=== PATIENT | female | born 1985 | race Caucasian/White ===

== ENCOUNTER 2025-06-28 12:59 | Emergency (ER) | payer BC, SELFPAY ==
[2025-06-28 13:01] VITALS: BP 167/94; PULSE 87; RESP 18; TEMP 36.9; O2SAT 98; BMI 36.1
--- OUTSIDE RECORDS SUMMARY | 2025-06-28 13:13 | XMS_ITS | Encounter Summary ---
[facility] Address [address] [place] [address] Care Team Providers Care Nissan Sales Consultant Name Role Phone Rigoberto Armendariz Primary Care Provider [phone] Encounter Details Date Type Department Care Team (Late st Contact Info) Description 01/22/2025 Results Follow-Up [facility] [place] [address] [place] [address] Clarice Rondon, PARTNER MANAGER [address] [facility] [address] [place] [address] Social History Tobacco Use Types Packs/Day Years Used Date Smoking Tobacco: Some Days Electronic Cigarette Smokeless Tobacco: Never Comments:I switched from smo juan cigarettes to vaping Alcohol Use Standard Drinks/Week Comments Yes 6 (1 standard drink = 0.6 oz pur e alcohol) AUDIT-C Answer Date Recorded Frequency of Alcohol Consumption Never 05/05/2019 Average Number of Drinks Not on file 019 Frequency of Binge Drinking Not on file 04/17 PHQ-2 Answer Date Recorded Retired PHQ-9: Brief Depression Severity Measure Score 0 10/23/2022 Gaylord Depression Scale Answer Date Recorded Gaylord Depression Scale Total 1 10/27/2019 The thought of harming myself has occurred to me . Unrecognized value 10/27/2019 PHQ-2 Answer Date Recorded Patient Health Questionnaire-2 Score 0 10/13/2024 Comments No Sex and Gender Information Value Date Recorded Sex Assigned at Not on file Legal Sex Female 10:16 AM EDT Gender Identity Not on file Sexual Orientation Not on file documented as of this encounter Plan of Treatment Not on file documented as of this encounter Visit Diagnoses Not on filedocumented in this encounter Care Teams Nissan Sales Consultant Relationship Specialty Start Date End Date Rigoberto Armendariz PA [address] [place] [address] PCP - General Physician Kiln Stoker 02/20/22 documented as of this encounter
--- OUTSIDE RECORDS SUMMARY | 2025-06-28 13:13 | XMS_ITS | Encounter Summary ---
[facility] Organization [facility] Address [address] [place] [address] Care Team Providers Care Restaurant Hourly Team Member Name Role Phone Rigoberto Armendariz Primary Care Provider [phone] Encounter Details Date Type Department Care Team (Late st Contact Info) Description 12/31/2024 Results Follow-Up [facility] [address] [place] [address] Clarice Rondon, DOVETAIL MACHINE OPERATOR [address] [facility] [address] [place] [address] Social History Tobacco Use Types Packs/Day Years [...] Brief Depression Severity Measure Score 0 10/23/2022 Leighton Depression Scale Answer Date Recorded Leighton Depression Scale Total 1 10/27/2019 The thought [...] on filedocumented in this encounter Care Teams Restaurant Hourly Team Member Relationship Specialty Start Date End Date Rigoberto Armendariz PA [address] [place] [address] PCP - General Physician Central Service Supply Distributor 02/20/22 documented as of this encounter
--- OUTSIDE RECORDS SUMMARY | 2025-06-28 13:13 | XMS_ITS | Referral Summary ---
Author Organization [employer] ([place], [place], [place], [place]) Address [address] [place] [address] Care Team Providers Care City Clerk Name Role Phone Unavailable Primary Care Provider Unavailabl e Social History Tobacco Use Types Packs/Day Years Used Date Smoking Tobacco: Never Assessed Comments Unknown Sex and Gender Information Value Date Recorded Sex Assigned at Female 03/13/2022 6:32 PM CDT Legal Sex Female 6:32 PM CDT Gender Identity Female 03/13/2022 6:32 PM CDT Sexual Orientation Not on file Plan of Treatment Not on file
--- OUTSIDE RECORDS SUMMARY | 2025-06-28 13:13 | XMS_ITS | Encounter Summary ---
Author Organization [employer] ([place], [place], [place], [place]) Address [address] [place] [address] Care Team Providers Care Belt And Link Shop Supervisor Name Role Phone Unavailable Primary Care Provider Unavailabl e Encounter Details Date Type Department Care Team (Late st Contact Info) Description 11/13/2019 Transcribed Document [facility] [place] [facility] [place] [address] ProviderAngeles MD [address] [place] [address] Social History Tobacco Use Types Packs/Day Years Used Date Smoking Tobacco: Never Assessed Comments Unknown Sex and Gender Information Value Date Recorded Sex Assigned at Female 03/13/2022 6:32 PM CDT Legal Sex Female 6:32 PM CDT Gender Identity Female 03/13/2022 6:32 PM CDT Sexual Orientation Not on file documented as of this encounter Miscellaneous Notes * Cerner Conversion Note - Angeles ProviderMD - 11/13/2019 10:54 AM ELECTRICAL CONTROL ASSEMBLER [facility] [place] [address] HALIMA CURRY :1985 Visit Time:11/13/2019 What to do next Your Diagnosis Other hemorrhoids, Other hemorrhoids Instructions From Your Care Team Diet after Discharge: Resume usual diet as tolerated, Do not drink any alcoholic beverages, Drink at least 8-10 glasses of water per day _ Activity after Discharge: As tolerated, Rest and relax today, No strenuous activity Lifting Restrictions: No heavy lifting over 10 pounds Driving after Discharge: Do not drive until 24 hours after no longer taking pain medications May Return to Work/School: when surgeon says its ok Showering/Bathing: May shower in 24 hours , No tub bathing, soaking or swimming Notify Provider of: signs of infection, fever greater then 101, pus like drainage, sever pain, swelling or bleeding. Wound/Incision Care after Discharge: Keep operative site/wound site clean and dry, Change dressing with dry dressing daily and as needed use stool softener as instructed. pump and dump as instructed. Discharge Follow Up Instructions: Follow up in 4 weeks in the office. Activity: Discharge Activity: Activity as tolerated Diet: Discharge Diet: Regular diet as tolerated Follow-Up Appointments Follow Up with DARWIN GUERRERO When 12/08/2019 04:00 PM EDT Comments Appointment has been made Where: [address] [facility] [address] [place] [phone] (1) Medications What How Much When Instructions Next Dose acetaminophen-oxyCODONE (Percocet 5/ 325 oral tablet) 1 Tablet(s) Oral Every 6 Hours as needed for Pain Printed Prescription docusate (Colace 100 mg oral capsule) 1 Capsule(s) Oral Two Times A Day Printed Prescription Non Formulary ( vitamins) Oral Every Morning Take your medications faithfully. Do NOT skip medication. Do NOT stop taking medications without the direction of a physician. Carry a list of your medications with you at all times, and take this medication list with you to your first follow up visit. Report any side effects. Avoid herbal remedies unless discussed with your physician. As part of your treatment plan, your physician may have prescribed a limited course of a controlled substance. This medication may be given to help people with moderate or severe pain or for other medical conditions, but there are risks involved with treatment. Common side effects may include nausea, constipation, drowsiness, sweating, itching, dry mouth, and rash. More serious side effects may include cognitive and motor impairment, like problems with thinking, concentrating, alertness, and movement (e.g. slowed reflexes), and driving and operating heavy machinery can be dangerous. It is important for you to talk to your physician if you have these side effects or questions. These controlled substances can produce physical dependence and be habit-forming if taken for an extended period of time, which means that the body has gotten used to them and may experience withdrawal symptoms if they are abruptly stopped. Withdrawal symptoms can include runny nose, sweating, goose bumps, diarrhea, abdominal cramping, rapid heartbeat, difficulty sleeping, and nervousness. Please dispose of unused and medications per pharmacy guidance. Education Materials Surgical Procedures for Hemorrhoids, Care After Refer to this sheet in the next few weeks. These instructions provide you with information about caring for yourself after your procedure. Your health care provider may also give you more specific instructions. Your treatment has been planned according to current medical practices, but problems sometimes occur. Call your health care provider if you have any problems or questions after your procedure. What can I expect after the procedure? After the procedure, it is common to have: ??? Rectal pain. ??? Pain when you are having a bowel movement. ??? Slight rectal bleeding. Follow these instructions at home: Medicines ??? Take gtsw-acc-gwhkcmi and prescription medicines only as told by your health care provider. ??? Do not drive or operate heavy machinery while taking prescription pain medicine. ??? Use a stool softener or a bulk laxative as told by your health care provider. Activity ??? Rest at home. Return to your normal activities as told by your health care provider. ??? Do not lift anything that is heavier than 10 lb (4.5 kg). ??? Do not sit for long periods of time. Take a walk every day or as told by your health care provider. ??? Do not strain to have a bowel movement. Do not spend a long time sitting on the toilet. Eating and drinking ??? Eat foods that contain fiber, such as whole grains, beans, nuts, fruits, and vegetables. ??? Drink enough fluid to keep your urine clear or pale yellow. General instructions ??? Sit in a warm bath 2???3 times per day to relieve soreness or itching. ??? Keep all follow-up visits as told by your health care provider. This is important. Contact a health care provider if: ??? Your pain medicine is not helping. ??? You have a fever or chills. ??? You become constipated. ??? You have trouble passing urine. Get help right away if: ??? You have very bad rectal pain. ??? You have heavy bleeding from your rectum. This information is not intended to replace advice given to you by your health care provider. Make sure you discuss any questions you have with your health care provider. Document Released: 11/22/2004 Document Revised: 02/07/2017 Document Reviewed: 11/28/2015 SPO Interactive Patient Education ?? 2019 [employer]. Outpatient Surgery, Adult, Care After These instructions provide you with information about caring for yourself after your procedure. Your health care provider may also give you more specific instructions. Your treatment has been planned according to current medical practices, but problems sometimes occur. Call your health care provider if you have any problems or questions after your procedure. What can I expect after the procedure? After the procedure, it is common to have: ??? Tenderness and numbness at the surgical site. ??? Swelling and bruising around the surgical site. ??? Nausea. Follow these instructions at home: For at least 24 hours after the procedure: ??? Have a responsible adult stay with you. It is important to have someone help care for you until you are awake and alert. ??? Rest as needed. ??? Do not: ? Participate in activities in which you could fall or become injured. ? Drive. ? Use heavy machinery. ? Drink alcohol. ? Take sleeping pills or medicines that cause drowsiness. ? Make important decisions or sign legal documents. ? Take care of children on your own. Activity ??? Return to your normal activities as told by your health care provider. Ask your health care provider what activities are safe for you. ??? Do not lift anything that is heavier than 10 lb (4.5 kg), or the limit that your health care provider tells you, until your health care provider says it is okay. ??? Do not play contact sports until your health care provider says it is okay. Incision care ??? Follow instructions from your health care provider about how to take care of an incision, if you have one. Make sure you: ? Wash your hands with soap and water before you change your bandage (dressing). If soap and water are not available, use hand mat puncher. ? Change your dressing as told by your health care provider. ? Leave stitches (sutures), skin glue, or adhesive strips in place. These skin closures may need to stay in place for 2 weeks or longer. If adhesive strip edges start to loosen and curl up, you may trim the loose edges. Do not remove adhesive strips completely unless your health care provider tells you to do that. ??? Check your incision area every day for signs of infection. Check for: ? More redness, swelling, or pain. ? More fluid or blood. ? Warmth. ? Pus or a bad smell. Medicines ??? Take dslr-aiw-adijqay and prescription medicines only as told by your health care provider. ??? Do not drive or use heavy machinery while taking prescription pain medicines. Eating and drinking ??? Follow the diet recommended by your health care provider. ??? When you are hungry, begin eating light and bland foods such as toast. Gradually return to your regular diet. ??? If you vomit: ? Drink water, juice, or soup when you can drink without vomiting. ? Make sure you have little or no nausea before eating solid foods. General instructions ??? If you have sleep apnea, surgery and certain medicines can increase your risk for breathing problems. Follow instructions from your HCP about wearing your sleep device: ? Anytime you are sleeping, including during daytime naps. ? While taking prescription pain medicines, sleeping medicines, or medicines that make you drowsy. ??? Do not use any tobacco products, such as cigarettes, chewing tobacco, and e-cigarettes, for as long as possible. ??? If you smoke, do not smoke without supervision. ??? Keep all follow-up visits as told by your health care provider. This is important. Contact a health care provider if: ??? You have more redness, swelling, or pain around your incision. ??? You have more fluid or blood coming from your incision. ??? Your incision feels warm to the touch. ??? You have pus or a bad smell coming from your incision. ??? You have a fever. ??? You feel light-headed or you faint. ??? You develop a rash. ??? You keep feeling nauseous or keep vomiting. ??? You have very bad pain, even after taking the medicines your health care provider has prescribed or recommended. ??? You have constipation. Get help right away if: ??? You are unable to pass urine. ??? You have trouble breathing. Summary ??? Have a responsible adult stay with you for at least 24 hours after the procedure. ??? Nausea is common after a procedure. Make sure you have little or no nausea before eating solid foods. Follow the diet recommended by your health care provider. ??? Ask your health care provider what activities are safe for you. This information is not intended to replace advice given to you by your health care provider. Make sure you discuss any questions you have with your health care provider. Document Released: 12/23/2016 Document Revised: 04/10/2018 Document Reviewed: 12/23/2016 SPO Interactive Patient Education ?? 2019 [employer]. Emergency Awareness and Preventative Care STROKE is an EMERGENCY Every Minute Counts Act FAST and Check for these signs: FACE Does the face look uneven? ARM Does one arm drift down? SPEECH Does their speech sound strange? TIME Call at any sign of stroke Stroke Risk Factors Atrial Fibrillation (irregular heartbeat) Diabetes Family history of stroke Heart Disease Heavy alcohol use High Blood Pressure High Cholesterol Physical inactivity and obesity Smoking Cigarette Smoking The facts are clear, cigarette smoking will shorten your life. Smoking can cause many illnesses along the way. As a healthcare provider, we recommend that you stop smoking. Assistance with quitting is available by contacting 2-319-MXVT-NOW. This is a free resource providing counseling, support, and referral. Or you may contact your personal physician. National Suicide Prevention Lifeline: The National Suicide Prevention Lifeline is a national network of local crisis centers that provides free and confidential emotional support to people in suicidal crisis or emotional distress 24 hours a day, 7 days a week. Don't Wait! Stop a Heart Attack Before it Starts What is a heart attack? A heart attack is damage or to a part of the heart from severely decreased or lack of blood flow to the heart. Over time, arteries can become narrow from the buildup of fat and cholesterol, which is called plaque. The plaque can rupture causing a blood clot to form. When the blood clot forms, the artery can become severely narrowed or completely blocked, causing a heart attack. Heart attack is the leading cause of in the [place]. 85% of muscle damage occurs within the first 2 hours. Delay in the recognition of heart attack symptoms increases the chances of . Know the early symptoms of a heart attack: Nausea Feeling of fullness in chest Jaw Pain Pain that travels down one or both arms Fatigue/being tired Anxiety Back Pain Chest pressure, squeezing, or discomfort Shortness of breath Sweating, or a cold sweat Feeling of impending doom There are unusual signs of a heart attack, too! Women, the elderly, and diabetics may present with atypical symptoms: Fainting/dizziness Weakness Confusion Risk Factors for a Heart Attack Some heart disease risk factors, such as age and family history, cannot be changed. Others, like smoking and lack of exercise, can be changed. Smoking High Cholesterol High Blood Pressure Family History Obesity Age Gender (Males are at higher risk) Lack of Exercise Diabetes Diet Stress Excessive Alcohol Intake If you or someone you know is experiencing the signs and symptoms of a heart attack, DON???T DELAY. Call immediately and seek help. If someone collapses, perform CPR! Do not attempt to drive if you are having symptoms of heart attack. Hands-Only CPR Why Hands-Only CPR? Hands-Only CPR has been shown to be as effective as conventional CPR for cardiac arrests that occur outside of a hospital. Survival depends on immediately receiving CPR from someone nearby. How do you perform Hands-Only CPR? There are two easy steps: Call if you see a teen or adult collapse Push hard and fast in the center of the chest at a beat of 100 beats per minute. Save a life! 4 WAYS TO GET AHEAD OF SEPSIS SEPSIS is a MEDICAL EMERGENCY. Time matters! Infections put you and your family at risk for a life-threatening condition called sepsis. Sepsis is the body's extreme response to an infection. It is life-threatening, and without timely treatment, sepsis can rapidly lead to tissue damage, organ failure, and . Sepsis happens when an infection you already have-in your skin, lungs, urinary tract or somewhere else-triggers a chain reaction throughout your body. 1 PREVENT INFECTIONS Take good care of chronic conditions. Talk to your doctor about getting the recommended vaccines. 2 PRACTICE GOOD HYGIENE Wash your hands frequently. Keep cuts or open sores clean and covered until they are healed. 3 KNOW THE SYMPTOMS Confusion or disorientation Shortness of breath High heart rate Fever, shivering, or feeling very cold Extreme pain or discomfort Clammy or sweaty skin 4 ACT FAST Get medical care IMMEDIATELY if you suspect sepsis or if you have an infection that is not getting better or is getting worse. To learn more about sepsis and how to prevent infections, visit www.cdc.gov/sepsis. Test Results Laboratory or Other Results This Visit (last charted value for your 11/13/2019 visit) No Laboratory or Other Results This Visit Patient Name:CURRY, HALIMA SALBADOR I have received this information and was given the opportunity to ask questions. Patient/Buttermaker Name: Patient/Buttermaker Signature: Relationship to Patient: Clinician/Hospital Buttermaker Signature: Date: documented in this encounter Plan of Treatment Not on file documented as of this encounter Visit Diagnoses Not on filedocumented in this encounter
--- OUTSIDE RECORDS SUMMARY | 2025-06-28 13:13 | XMS_ITS | Clinical Summary ---
Author Organization [employer] ([place], [place], [place], [place]) Address [address] [place] [address] Care Team Providers Care Lacquer Pin Press Operator Name Role Phone Unavailable Primary Care Provider [...]
--- OUTSIDE RECORDS SUMMARY | 2025-06-28 13:13 | XMS_ITS | Encounter Summary ---
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 Name: HALIMA BASSETT /Sex: 1985 Female Med Rec #: [id number] Physician: DARWIN GUERRERO MD-PRO Financial #: [id number] Pt. Type: O Room/Bed: Admit/Disch: 11/13/19 06:46:00 - Institution: [facility] Main OR PostOp Case Times Entry 1 In PACU II 11/13/19 10:37:00 Ready for PACU II 11/13/19 10:58:00 Discharge Discharge from PACU 11/13/19 11:22:00 II Last Modified By: ADRIEL KNOX, OSWALDO 11/13/19 11:31:51 [facility] Main OR PostOp Case Times Audit 11/13/19 11:31:51 Syrup Maker Cook: OSCAR Modifier: [email or web address] <+> 1 Discharge from PACU II Finalized By: ADRIEL KNOX, RN Document Signatures Signed By: ADRIEL KNOX RN 11/13/19 11:31 Electronically signed by Karena [facility] Conversion Hat Forming Machine Feeder Cerner at 01/04/2023 9:42 AM CDT documented in this encounter Plan of Treatment Not on file documented as of this encounter Visit Diagnoses Not on filedocumented in this encounter
--- OUTSIDE RECORDS SUMMARY | 2025-06-28 13:13 | XMS_ITS | Clinical Summary ---
Author Organization [facility] Address [address] [place] [address] Care Team Providers Care Talent Manager Name Role Phone Rigoberto Armendariz Primary Care Provider [phone] Allergies No known active allergies Medications Levonorgestrel (Mirena, 52 MG,) 20 MCG/DAY intrauterine device IUD To be inserted one time by prescriber. Route intrauterine. Active spironolactone (Aldactone) 50 MG tablet Take 1 tablet by mouth Every Morning. 30 tablet 12 5 Active metFORMIN ER (GLUCOPHAGE-XR) 500 MG 24 hr tabletIndication s:Encounter for weight management,Obesi ty (BMI 30-39.9),PCOS (polycystic ovarian syndrome) Take 1 tablet by mouth Daily With Breakfast. 90 tablet 1 5 Active Tirzepatide-Weig ht Management (ZEPBOUND) 2.5 MG/0.5ML solution auto-injectorInd ications:Encount er for weight management,Obesi ty (BMI 30-39.9),PCOS (polycystic ovarian syndrome) Inject 0.5 mL under the skin into the appropriate area as directed 1 (One) Time Per Week. 2 mL 5 Active Active Problems Problem Noted Date Diagnosed Date IUD check up 11/12/2024 Overview (11/12/2024): Mirena IUD placed 12/24/19 Attention deficit disorder (ADD) in adult 2019 Mixed hyperlipidemia 08/24/2020 Family history of diabetes mellitus 08/24/2020 History of section complicating pregnan cy 10/27/2019 Resolved Problems Problem Noted Date Diagnosed Date Resolved Date Obesity in , antepartum 10/27/2019 08/24/2020 Delivery by section using transverse incision of lower segment of uterus 10/22/2019 1205/2020 Immunizations Immunization Administration Dates Next Due COVID-19 (PFIZER) Purple Cap Monovalent 05/15/20 21,04/22/2021 Covid-19 (Pfizer) Rodriguez Cap Monovalent 11/13/2021 Influenza TIV (IM) 09/10/2012 MMR 09/02/2012,07/30/2012 Tdap 08/18/2012 Family History Medical History Relation Name Comments Breast cancer Maternal Aunt Breast cancer Maternal Grandmother Diabetes Mother Alessandra Hypertension Mother Alessandra Obesity Mother Alessandra Endometrial cancer Neg Hx Ovarian cancer Neg Hx Relation Name Status Comments Maternal Aunt Maternal Grandmother Mother Alessandra Social History Tobacco Use Types Packs/Day Years Used Date Smoking Tobacco: Some Days Electronic Cigarette Smokeless Tobacco: Never Tobacco Cessation:Ready to Q uit: No; Counseling Given: Not Answered Comments:I switched from smoking cigarettes to vaping Alcohol Use Standard Drinks/Week Comments Yes 6 (1 standard drink = 0.6 oz pur e alcohol) AUDIT-C Answer Date Recorded Frequency of Alcohol Consumption Never 05/05/2019 Average Number of Drinks Not on file 019 Frequency of Binge Drinking Not on file 04/17 PHQ-2 Answer Date Recorded Retired PHQ-9: Brief Depression Severity Measure Score 0 10/23/2022 [place] Depression Scale Answer Date Recorded [place] Depression Scale Total 1 10/27/2019 The thought of harming myself has occurred to me . Unrecognized value 10/27/2019 PHQ-2 Answer Date Recorded Patient Health Questionnaire-2 Score 0 10/13/2024 Comments No Sex and Gender Information Value Date Recorded Sex Assigned at Not on file Legal Sex Female 10:16 AM EDT Gender Identity Not on file Sexual Orientation Not on file Last Filed Vital Signs Vital Sign Reading Time Taken Comments Blood Pressure 124/76 11/23/2024 2:38 PM EDT Pulse 83 11/23/2024 2:38 PM EDT Temperature 36.7 C (98 F) 11/23/2024 2:38 PM EDT Respiratory Rate 14 11/23/2024 2:38 PM EDT Oxygen Saturation 97% 11/23/2024 2:38 PM EDT Inhaled Oxygen Concentration - - Weight 109 kg (240 lb) 11/23/2024 2:38 PM EDT Height 175.3 cm (5' 9 ) 11/23/2024 2:38 PM EDT Body Mass Index 35.44 11/23/2024 2:38 PM EDT Plan of Treatment Health Maintenance Due Date Last Done Comments Pneumococcal Vaccine 0-49 (1 of 2 - PCV) 2006 TDAP/TD VACCINES (2 - Td or Tdap) 08/18/2022 012 ANNUAL PHYSICAL 08/16/2023 08/16/2022 INFLUENZA VACCINE 04/16/2025 09/10/2012 LIPID PANEL 11/12/2025 11/12/2024, 09/2021, 07/26/2022, Additional history exists Annual Gynecologic Pelvic an d Breast Exam 11/13/2025 11/12/2024, 08/16/2022 PAP SMEAR 11/12/2027 11/12/2024, 09/2021, 08/16/2022, Additional history exists HEPATITIS C SCREENING Completed 08/16/2022 Procedures Procedure Name Priority Date/Time Associated Diagnosis Comments LIPID PANEL Routine 11/12/2024 8:42 AM EST Women's annual routine gynecological examination Female hirsutism Acne, unspecified acne type LIQUID-BASED PAP SMEAR WITH HPV GENOTYPING REGARDLESS OF INTERPRETATION, [facility] (JAKY,COR,MAD) Routine 11/12/2024 8:34 AM EST Women's annual routine gynecological examination HEPATITIS C ANTIBODY Routine 08/16/2022 11:57 AM EST Encounter for hepatitis C screening test for low risk patient SCANNED - PAP SMEAR 08/16/2022 from Last 3 Months or Most Recently Relevant to Health Maintenance Results * (ABNORMAL) Lipid Panel (11/12/2024 8:42 AM EST) Total Cholesterol 188 0 - 200 mg/dL [facility] Comment: Cholesterol Reference Ranges (U.S. Department of Health and Human Services ATP III Classifications) Desirable <200 mg/dL Borderline High 200-239 mg/dL High Risk >240 mg/dL Triglyceride Reference Ranges (U.S. Department of Health and Human Services ATP III Classifications) Normal <150 mg/dL Borderline High 150-199 mg/dL High 200-499 mg/dL Very High >500 mg/dL HDL Reference Ranges (U.S. Department of Health and Human Services ATP III Classifications) Low <40 mg/dl (major risk factor for CHD) High >60 mg/dl ('negative' risk factor for CHD) LDL Reference Ranges (U.S. Department of Health and Human Services ATP III Classifications) Optimal <100 mg/dL Near Optimal 100-129 mg/dL Borderline High 130-159 mg/dL High 160-189 mg/dL Very High >189 mg/dL LDL is calculated using the NIH LDL-C calculation. Triglycerides 282(H) 0 - 150 mg/dL [facility] HDL Cholesterol 43 40 - 60 mg/dL [facility] VLDL Cholesterol Max 48(H) 5 - 40 mg/dL [facility] LDL Chol Calc (NIH) 97 0 - 100 mg/dL [facility] Blood 11/12/2024 8:42 AM EST 11/12/2024 Narrative [facility] ([facility]) - 11/13/2024 8:11 AM EST Performed at: [address] [place] [id number] Repair Department Manager: Manjinder Graf MD, Phone: [phone] Patient Fasting: N Clarice Lazo APRN LAB BLOOD ORDERABLES Joselin l Result Performing Organization Address City/State/[facility] Co de Phone Number [facility] ([facility]) [address] [place] [address], [facility] [address] [place] [address], * LIQUID-BASED PAP SMEAR WITH HPV GENOTYPING REGARDLESS OF INTERPRETATION (JAKY,COR,MAD) (11/12/2024 8:34 AM EST) Pathologist [facility] Reference Lab Report [facility] [address] [place] [address] or [phone] Stephane Masterson M.D., Director Social Welfare PATIENT NAME LABORATORY NO. 65URBANO JONES. [id number] AGE SEX SSN CLIENT REF # [facility] ([facility]IGNIK [facility]) 37 1985 F [id number] Natalya DOUGLAS CHAVARRIA REQUESTING Mohit ATTENDING M.D. [place] [address] LAZOASHWINY DATE COLLECTED DATE RECEIVED DATE REPORTED 11/12/2024 11/12/2024 11/13/2024 ThinPrep Pap with Cytyc Imaging DIAGNOSIS: Negative for intraepithelial lesion or malignancy Multiple factors can influence accuracy of Pap tests; therefore, screening at regular intervals is necessary for early cancer detection. SPECIMEN ADEQUACY: SATISFACTORY FOR EVALUATION Transformation zone is present. SOURCE OF SPECIMEN: CERVICAL SLIDES: 1 CLINICAL HISTORY: Women's annual routine gynecological examination Encounter for screening for infections with a predominantly sexual mode of transmission Menstrual / History: Irregular Intrauterine Device HPV HR-HPV POOL: Negative The Aptima HPV assay is an in vitro nucleic acid amplification test for the qualitative detection of E6/E7 viral messenger RNA from 14 high risk types of HPV in cervical specimens. The high risk HPV types detected include: 16, 18, 31, 33, 35, 39, 45, 51, 52, 56, 58, 59, 66, 68 Chlamydia / Gonorrhea CHLAMYDIA TRACHOMATIS: Negative NEISSERIA GONORRHOEAE: Negative The Aptima Combo 2 assay is a target amplification nucleic acid probe test that utilizes target capture for the in vitro qualitative detection and differentiation of ribosomal RNA from Chlamydia trachomatis and Neisseria gonorrhoeae to aid in the diagnosis of chlamydial and gonococcal disease using the [place] system. Trichomonas TRICHOMONAS VAGINALIS: Negative The Aptima Trichomonas vaginalis assay is an in vitro qualitative nucleic acid amplification test for the detection of ribosomal RNA to aid in the diagnosis of trichomoniasis. RAILWAY YARD ASSISTANT: ANDRE GLASS(ASCP) CPT CODES: 50651, 39609, 82950, 24647, 48995 11/13/2024 10:55 AM EST [facility] ThinPrep Vial Collection / Unknown 11/12/2024 8:34 AM EST 11/12/2024 8:34 AM EST Clarice Lazo APRN PATHOLOGY/CYTOLOGY ORDERA BLES Final Result [facility]
[address] [place] [address], [place] [phone] * Hepatitis C Antibody (08/16/2022 11:57 AM EST) Hep C Virus Ab <0.1 0.0 - 0.9 s/co ratio [facility] Comment: Negative: < 0.8 Indeterminate: 0.8 - 0.9 Positive: > 0.9 HCV antibody alone does not differentiate between previous resolved infection and active infection. The CDC and current clinical guidelines recommend that a positive HCV antibody result be followed up with an HCV RNA test to support the diagnosis of acute HCV infection. [facility] Hepatitis C Virus (HCV) RNA, Diagnosis, RYAN (315293) and Hepatitis C Virus (HCV) Antibody with reflex to Quantitative Real-time PCR (290069). Blood 08/16/2022 11:5 7 AM EST 08/16/2022 Narrative [facility] (AMBULATORY) - 08/17/2022 7:09 AM EST Performed at: [address] [id number] Repair Department Manager: Elijah Klein PhD, Phone: [phone] Patient Fasting: Y Yeni Tam DO LAB BLOOD ORDERABLES Final Result Performing Organization Address City/[facility] Co de Phone Number [facility] ([facility]) [address] [place] [address], [place] [phone] [facility] [address] [place] [address], [place] [phone] * SCANNED - PAP SMEAR (08/16/2022) Yeni Tam DO CHART REVIEW TABS Final Result from Last 3 Months or Most Recently Relevant to Health Maintenance Insurance [facility] PPO Advance Directives * CPR (Attempt to Resuscitate) (Latest Code Status on File) Date Activated Date Inactivated Comments 10/27/2019 12:30 PM 10/31/2019 3:41 PM Question Answer Comments Code Status (Patient has no pulse and is not breathing): CPR (Attempt to Resuscitate) Medical Interventions (Patie nt has pulse or is breathing): Full * CPR (Attempt to Resuscitate) Date Activated Date Inactivated Comments 10/27/2019 7:20 AM 10/27/2019 12:30 PM Question Answer Comments Code Status (Patient has no pulse and is not breathing): CPR (Attempt to Resuscitate) Medical Interventions (Patie nt has pulse or is breathing): Full Care Teams Talent Manager Relationship Specialty Start Date End Date Rigoberto Armendariz [place] [address] PCP - General Physician Pesticide Control Inspector 02/20/22
--- OUTSIDE RECORDS SUMMARY | 2025-06-28 13:14 | XMS_ITS | Encounter Summary ---
Author Organization [employer] ([place], [place], [place], [place]) Address [address] [place] [address] Care Team Providers Care Pinion Sorter Name Role Phone Unavailable Primary Care Provider Unavailabl e Encounter Details Date Type Department Care Team (Late st Contact Info) Description 11/13/2019 Transcribed Document [facility] [place] [address] ProviderAngeles MD [address] [place] [address] Social History Tobacco Use Types Packs/Day [...] - Angeles ProviderMD - 11/13/2019 9:15 AM LABORER [facility] Main OR PACU Summary Primary Physician: DARWIN GUERRERO MD-PRO Finalized Date/Time: 11/13/19 10:44:54 Pt. Name: HALIMA CURRY/Sex: 1985 Female Med Rec #: [id number] Physician: DARWIN GUERRERO MD-PRO Financial #: [id number] Pt. Type: O Room/Bed: Admit/Disch: 11/13/19 06:46:00 - Institution: [facility] Main OR PACU I Case Times Entry 1 In PACU I 11/13/19 09:52:00 Ready for PACU 11/13/19 10:34:00 Discharge Discharge from PACU 11/13/19 10:34:00 I Last Modified By: SURI WHITLEY, RN 11/13/19 10:44:47 Finalized By: SURI WHITLEY RN Document Signatures Signed By: SURI WHITLEY RN 11/13/19 10:44 Electronically signed by William Thurston Conversion Retail Pharmacy Technician Cerner at 01/04/2023 9:14 AM CDT documented in this encounter Plan of Treatment Not on file documented as of this encounter Visit Diagnoses Not on filedocumented in this encounter
--- OUTSIDE RECORDS SUMMARY | 2025-06-28 13:14 | XMS_ITS | Encounter Summary ---
Author Organization [employer] ([place], [place], [place], [place]) Address [address] [place] [address] Care Team Providers Care Resident Care Coordinator Name Role Phone Unavailable Primary Care Provider Unavailabl e Encounter Details Date Type Department Care Team (Late st Contact Info) Description 11/13/2019 Transcribed Document [facility] [place] [facility] [place] [address] ProviderAngeles MD [address] [place] [address] Social History Tobacco Use Types Packs/Day [...] Conversion Note - Angeles ProviderMD - 11/13/2019 9:42 AM FWS FACULTY ASSISTANT Patient: URBANO BASSETT Age: 34 Years Sex: Female : 1985 CSGA Pre Op Diagnosis:Symptomatic prolapsed hemorrhoids, grade 4 Post Op Diagnosis:Same Procedure:To segment Saini hemorrhoidectomy Chief Hospital Administrator:None Indications:This is a 34-year-old female with significant symptomatic hemorrhoids. They are grade 4. There in the left lateral and right posterior position. She has been miserable from these and unable to participate in her activities of daily living. She desires surgical intervention. Findings:Grade 4 hemorrhoids thrombosed and prolapsed in the left lateral and right posterior position. Procedure in Detail:Patient was correctly identified brought to the operative and placed in a supine position on the OR table. She underwent induction of anesthesia and intubated. She was positioned in lithotomy position using candycane stirrups. She was prepped and draped over the perineum in the usual sterile fashion.An appropriate timeout was performed. Careful anorectal examination confirmed my findings from my sit. She continues to have large hemorrhoids in the left lateral and right posterior position. These were thrombosed and prolapsed. I felt her best option would be a 2 segment Saini hemorrhoidectomy and that's how we proceeded. I began in the left lateral position and excised the hemorrhoid with an elliptical incision around it and dissecting it up off of the underlying internal anal sphincter back to its origin. Here it was suture ligated with 3-0 Monocryl stitch. The hemorrhoid was removed and the rectal mucosa and anoderm reapproximated. In like fashion I treated the right posterior hemorrhoid. At this 30 mL's of local anesthetic was injected. There was minimal blood loss. At this point the patient was awakened, extubated, and brought to recovery in good condition. Electronically signed by William Thurston Conversion Veterinary Surgery Technician Cerner at 01/04/2023 9:17 AM CDT documented in this encounter Plan of Treatment Not on file documented as of this encounter Visit Diagnoses Not on filedocumented in this encounter
--- OUTSIDE RECORDS SUMMARY | 2025-06-28 13:14 | XMS_ITS | Encounter Summary ---
Author Organization [employer] ([place], [place], [place], [place]) Address [address] [place] [address] Care Team Providers Care Civil Engineering Drafter Name Role Phone Unavailable Primary Care Provider Unavailabl e Encounter Details Date Type Department Care Team (Late st Contact Info) Description 11/13/2019 Transcribed Document [facility] [place] [facility] [place] [address] ProviderAngeles MD [address] [place] [address] Social History Tobacco Use Types Packs/Day [...] - Angeles ProviderMD - 11/13/2019 9:15 AM PATIENT CARE TECHNICIAN INSTRUCTOR [facility] Main OR Preop Summary Primary Physician: DARWIN GUERRERO MD-PRO Finalized Date/Time: 11/13/19 14:10:49 Pt. Name: HALIMA BASSETT /Sex: 1985 Female Med Rec #: [id number] Physician: DARWIN GUERRERO MD-PRO Financial #: [id number] Pt. Type: O Room/Bed: /13 Admit/Disch: 11/13/19 06:46:00 - 11/13/19 11:22:00 Institution: [facility] PreOp Case Times Entry 1 In Preop 11/13/19 06:55:00 Ready for Holding n/a Room Patient Ready for 11/13/19 08:15:00 Surgery Patient Out of Preop 11/13/19 09:01:00 Patient Out of n/a Holding Room Last Modified By: EULA CRUZ 11/13/19 14:10:43 [facility] PreOp Case Times Audit 11/13/19 14:10:43 Lead Ruby On Rails Developer: [email or web address] Modifier: [email or web address] <+> 1 In Preop <+> 1 Patient Ready for Surgery Finalized By: EULA CRUZ Document Signatures Signed By: EULA CRUZ 11/13/19 14:10 Electronically signed by Karena [facility] Conversion Wood Machine Carver Cerner at 01/04/2023 9:31 AM CDT documented in this encounter Plan of Treatment Not on file documented as of this encounter Visit Diagnoses Not on filedocumented in this encounter
--- OUTSIDE RECORDS SUMMARY | 2025-06-28 13:14 | XMS_ITS | Encounter Summary ---
Author Organization [employer] ([place], [place], [place], [place]) Address [address] [place] [address] Care Team Providers Care Fur Cutting Machine Operator Name Role Phone Unavailable Primary Care Provider Unavailabl e Encounter Details Date Type Department Care Team (Late st Contact Info) Description 11/12/2019 Transcribed Document [facility] [place] [facility] [place] [address] ProviderAngeles MD [address] [place] [address] Social History Tobacco Use Types Packs/Day Years Used Date Smoking Tobacco: Never Assessed Comments Unknown Sex and Gender Information Value Date Recorded Sex Assigned at Female 03/13/2022 6:32 PM CDT Legal Sex Female 6:32 PM CDT Gender Identity Female 03/13/2022 6:32 PM CDT Sexual Orientation Not on file documented as of this encounter Miscellaneous Notes * Cerner Conversion Note - Historical ProviderMD - 11/12/2019 3:05 PM SPECTROGRAPHER PAT Adult Entered On: 11/12/2019 15:10 EST Performed On: 11/12/2019 15:05 EST by Venus Napier RN Height and Weight, Clinical Dosing Height Source : Measured Height Entry Format : [place] Height, Feet : 5 ft(Converted to: 152 cm, 60 Inch) Height, Inches : 9 Inch(Converted to: 0 ft 9 Inch, 22.86 cm) Clinical Height : 175.26 cm Weight Source : Standing scale Weight Entry Format : [place] Clinical Dosing Weight : 106.82 kg Weight, Pounds : 235 lb Body Surface Area (BSA) : 2.21 m2 Body Mass Index : 34.8 kg/m2 (HI) [place] Body Weight : 66 kg EULA CRUZ - 11/13/2019 7:51 EST Health Histories Smoking Status : Former smoker, quit more than 30 days ago Smokeless Tobacco Status : Never Venus Napier RN - 11/12/2019 15:05 EST Social History (As Of: 11/13/2019 07:52:09 EST) Tobacco: Years of Use: 10. Packs/Tins Daily: 0.5. Comments: 11/12/2019 15:06 - Venus Napier RN: february 2019 quit (Last Updated: 11/12/2019 15:06:22 EST by Venus Napier, RN) Alcohol: Date/Time of Last Drink: socially. (Last Updated: 11/12/2019 15:06:34 EST by Venus Napier, RN) Substance Abuse: Drug Use Hx: No. Use in Last 12 Months: No. (Last Updated: 11/12/2019 15:10:06 EST by Venus Napier, RN) Infectious Disease History Physical contact outside [place] in the last 30 days : No Infectious Disease History : Chicken pox/Shingles, Influenza Tuberculosis Symptoms : None Venus Napier RN - 11/12/2019 15:05 EST Anesthesia/Transfusion History Blood Transfusion Acceptable to Patient : Yes EULA CRUZ - 11/13/2019 7:51 EST Family History of Anesthesia Reaction : No prior transfusion(s) Transfusion History : Prior anesthesia reaction Type of Anesthesia Reaction : Excessive nausea/vomiting Family History of Anesthesia Reaction : None Venus Napier RN - 11/12/2019 15:05 EST Functional Assessment Functional ADL Evaluation Index EBN Bathing : Independent (2) Dressing : Independent (2) Toileting : Independent (2) Transferring Bed or Chair : Independent (2) Continence : Independent (2) Feeding : Independent (2) EULA CRUZ - 11/13/2019 7:51 EST ADL Index Score : 12 EULA CRUZ 11/13/2019 7:51 EST Advance Directive Patient has Advance Directive *Q : No, patient refuses Advance Directive information Venus Napier RN - 11/12/2019 15:05 EST Spiritual/Cultural Needs Any Spiritual/Cultural Needs or Requests : No EULA CRUZ 11/13/2019 7:51 EST [place] Suicide Severity Rating Scale (C-SSRS) CSSRS Past Month Wish to be : No CSSRS Past Month Suicidal Thoughts : No CSSRS Lifetime Suicide Behavior : No Suicide Severity Rating Score : 0 Suicide Severity Rating : No Additional Care Required at this time Venus Napier RN - 11/12/2019 15:05 EST Psychosocial History Do You Have a History of the Following? : Patient denies history Currently in Unsafe Situation : No Venus Napier RN - 11/12/2019 15:05 EST General Info Support Person/Pt Rep Name : mother Alessandra Og [phone] Want Family/Rep/Phys Notified of Admit : No Emergency Contact #1 : see above Emergency Contact #1 Phone Number : . Emergency Contact #1 Relationship : . Emergency Contact #2 : . Emergency Contact #2 Phone Number : . Emergency Contact #2 Relationship : .. Information Obtained From : Patient Primary Language : Scottish Preferred Communication Mode : Verbal Communication Barrier : None Venus Napier RN - 11/12/2019 15:05 EST Fly Scale Fly Sensory Perception : No impairment Fly Moisture : Rarely moist Fly Activity : Walks occasionally Fly Mobility : No limitation Fly Nutrition : Excellent Fly Friction and Shear : No apparent problem Fly Score : 22 EULA CRUZ - 11/13/2019 7:51 EST Sleep Apnea Risk Assmt BMI Greater Than 35 kg/m2 : No Neck Circumference Greater Than 40 cm : No STOP-BANG Sleep Apnea Risk Level Score : 1 EULA CRUZ - 11/13/2019 7:51 EST Hx of Obstructive Sleep Apnea Diagnosis : No Snore Loudly : Yes Tired, Fatigued, or Sleepy During Day : No Observed Stopping Breathing During Sleep : No Have/Are Being Treated for Hypertension : No Age over 50 Years Old : No Gender Male : No Venus Napier RN - 11/12/2019 15:05 EST Electronically signed by William Thurston Conversion Mathematics Academic Chair Cerner at 01/04/2023 9:44 AM CDT documented in this encounter Plan of Treatment Not on file documented as of this encounter Visit Diagnoses Not on filedocumented in this encounter
--- OUTSIDE RECORDS SUMMARY | 2025-06-28 13:14 | XMS_ITS | Encounter Summary ---
Author Organization [employer] ([place], [place], [place], [place]) Address [address] [place] [address] Care Team Providers Care Clock Smith Name Role Phone Unavailable Primary Care Provider Unavailabl e Encounter Details Date Type Department Care Team (Late st Contact Info) Description 11/13/[address] 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 Name: HALIMA CURRY /Sex: 1985 Female Med Rec #: [id number] Physician: DARWIN GUERRERO MD-PRO Financial #: [id number] Pt. Type: O Room/Bed: Admit/Disch: 11/13/19 06:46:00 - 11/13/19 11:22:00 Institution: [facility] IntraOp Case Attendance Entry 1 Entry 2 Entry 3 Case Attendee DARWIN GUERRERO MD-PRO BARNES, DEVON, CRNA-ALLYSON CRAFT MD-ANS Role Performed Surgeon/Proceduralist, TRANSCRIBER/Nurse Vocational Aide Anesthesiologist of First Record Time In 11/13/19 09:02:00 11/13/19 09:02:00 11/13/19 09:02:00 Time Out 11/13/19 09:49:00 11/13/19 09:49:00 11/13/19 09:49:00 Procedure Hemorrhoidectomy Hemorrhoidectomy Hemorrhoidectomy Other Attendee Superficial Wound Closed By: Last Modified By: Zaheer Hendrix, Zaheer Whitehead, Zaheer Whitehead RN 11/13/19 09:52:51 11/13/19 09:52:51 11/13/19 09:52:51 Entry 4 Entry 5 Entry 6 Case Attendee Zaheer Hendrix, BRIANA MCNEIL Gwendolyn, Rn Role Performed Tin Recovery Worker, First Scrub, First Tin Recovery Worker, First Time In 11/13/19 09:02:00 11/13/19 09:02:00 11/13/19 09:25:00 Time Out 11/13/19 09:49:00 11/13/19 09:49:00 11/13/19 09:49:00 Procedure Hemorrhoidectomy Hemorrhoidectomy Hemorrhoidectomy Other Attendee Superficial Wound Closed By: Last Modified By: Zaheer Hendrix RN Pantano, Scott, Zaheer Whitehead RN 11/13/19 09:52:51 11/13/19 09:52:51 11/13/19 09:52:51 [facility] IntraOp Case Attendance Audit 11/13/19 09:52:51 Bolter Helper: JOAQUIN Modifier: PANTANOS 1 <+> Time Out 1 <*> Procedure Hemorrhoidectomy 2 <+> Time Out 2 <*> Procedure Hemorrhoidectomy 3 <+> Time Out 3 <*> Procedure Hemorrhoidectomy 4 <+> Time Out 4 <*> Procedure Hemorrhoidectomy 5 <+> Time Out 5 <*> Procedure Hemorrhoidectomy 6 <+> Time Out 6 <*> Procedure Hemorrhoidectomy 11/13/19 09:31:52 Bolter Helper: BRYANS Modifier: PANTANOS <+> 6 Case Attendee <+> 6 Role Performed <+> 6 Time In <+> 6 Procedure 11/13/19 09:24:24 Bolter Helper: JOAQUIN Modifier: PANTANOS <+> 1 Procedure 2 <*> Procedure Hemorrhoidectomy 3 <*> Procedure Hemorrhoidectomy 4 <*> Procedure Hemorrhoidectomy 5 <*> Procedure Hemorrhoidectomy 11/13/19 09:23:57 Bolter Helper: CARAANOS Modifier: PANTANOS 2 <+> Time In 2 <*> Procedure Hemorrhoidectomy 3 <+> Time In 3 <*> Procedure Hemorrhoidectomy 4 <+> Time In 4 <*> Procedure Hemorrhoidectomy 5 <+> Time In 5 <*> Procedure Hemorrhoidectomy 11/13/19 09:19:25 Bolter Helper: PANTANOS Modifier: PANTANOS <+> 1 Time In <+> 2 Case Attendee <+> 2 Role Performed <+> 2 Procedure <+> 3 Case Attendee <+> 3 Role Performed <+> 3 Procedure <+> 4 Case Attendee <+> 4 Role Performed <+> 4 Procedure <+> 5 Case Attendee <+> 5 Role Performed <+> 5 Procedure [facility] IntraOp Case Times Entry 1 Patient In Room Time 11/13/19 09:02:00 Out Room Time 11/13/19 09:49:00 Anesthesia Start Time 11/13/19 09:02:00 Stop Time 11/13/19 09:49:00 Surgery / Procedure Times Start Time 11/13/19 09:15:00 Stop Time 11/13/19 09:41:00 Last Modified By: Zaheer Hendrix RN 11/13/19 09:52:24 [facility] IntraOp Case Times Audit 11/13/19 09:52:24 Bolter Helper: PANTANOS Modifier: PANTANOS <+> 1 Out Room Time <+> 1 Stop Time <+> 1 Stop Time 11/13/19 09:16:38 Bolter Helper: PANTANOS Modifier: PANTANOS <+> 1 In Room Time <+> 1 Start Time [facility] IntraOp Cautery Entry 1 ESU Identification Cautery Type Monopolar ESU ID Number [id number] ID Type Hospital Number Cautery Settings Cut Setting 30 Coag Setting 30 ESU Grounding Pad Ground Pad Type Adult Grounding Pad Type Megadyne Comment Grounding Pad Site Right thigh Grounding Pad Zaheer Hendrix RN Applied By Grounding Pad Site Warm, dry and intact Skin Condition Before Cautery Grounding Pad Site Warm, dry and intact Skin Condition After Cautery Last Modified By: Zhaeer Hendrix RN 11/13/19 09:22:18 [facility] IntraOp Communication Entry 1 Communication To Family/Significant other Communication By Zaheer Hendrix RN Date and Time 11/13/19 09:21:00 Last Modified By: Zaheer Hendrix RN 11/13/19 09:21:47 [facility] IntraOp Counts Verification Entry 1 Procedure Hemorrhoidectomy Count Info Count Type Sponge, Sharps, Miscellaneous Counts Verification Baseline/pre-procedure Sequence Count Results Correct, surgeon notified Counts Performed By Count Performed By BRIANA GOLDBERG (Scrub) Count Performed By Zaheer Hendrix RN (RN) Last Modified By: Zaheer Hendrix RN 11/13/19 09:20:26 [facility] IntraOp Counts Final Entry 1 Procedure Hemorrhoidectomy Final Count Info Count Type Sponge, Sharps, Miscellaneous Counts Verification Skin Closure/end of Sequence procedure Count Results Correct, surgeon notified Counts Performed By Count Performed By BRIANA GOLDBERG (Scrub) Count Performed By Zaheer Hendrix RN (RN) Last Modified By: Zaheer Hendrix RN 11/13/19 09:20:54 [facility] IntraOp Cultures and Spec Summary Entry 1 Cultrures and Specimens Specimen Ordered: Yes Test(s) Routine/Path-Lab Requested/Final Disposition Last Modified By: Zaheer Hendrix RN 11/13/19 09:21:04 [facility] IntraOp Departure from OR Entry 1 Integumentary Assessment Integumentary WDL with patient Assessment WDL specific variances Patient's Normal Surgical incision Integumentary perinal area Variance(s) Transfer/Handoff Transfer to PACU Phase I Handoff Method Phone call Post-op Transport Stretcher/Gurney Via Patient Transport Zaheer Hendrix RN, Accompanied by BA LORD CRNA-ANS Last Modified By: Zaheer Hendrix RN 11/13/19 09:21:22 [facility] IntraOp Dressing and Packing Entry 1 Type Dressing Location Perianal Wound Dressing Item 4x4's Applied By BRIANA GOLDBERG Other Comments Medipore tape Last Modified By: Zaheer Hendrix RN 11/13/19 09:20:59 [facility] IntraOp Fire Risk Assessment Entry 1 Fire Info Surgical Site or 0- No Incision Above the Xyphoid Open O2 Source 0- No (Mask or Cannula) Available Ignition 1- Yes (ESU, Laser, Light Source) Fire Risk 1 Assessment Score Fire Score Fire Risk Yes Assessment Complete Fire Risk Zaheer Hendrix RN Assessment Verified By Fire Risk 11/13/19 07:30:00 Assessment Verified Date/Time Fire Risk Standard Fire Yes Safety Precautions Followed Last Modified By: Zaheer Hendrix RN 11/13/19 09:22:28 [facility] IntraOp General Case Comfort Station Supervisor 1 Case Information OR OR 06 [facility] Case Level 1 Room Verified Yes Wound Class III - Contaminated Specialty SN Colorectal Anesthesia Type General ASA Class 1E Diagnosis Preop Diagnosis HEMORROIDS Postop Same As Preop Yes Postop Diagnosis HEMORROIDS Last Modified By: Zaheer Hendrix RN 11/13/19 09:22:52 [facility] IntraOp Intraoperative Assessment Entry 1 Handoff Method Online nursing summary Valid History / Yes Physical in Chart Preoperative Yes Checklist Reviewed/Evaluated Allergies Reviewed Yes Patient is Latex No Sensitive Isolation Not applicable Precautions Noted Level of WDL Consciousness (WDL = Alert, Oriented to Person, Place, and Time) Skin Assessment Yes Verified Present Upon IVs Arrival to OR Last Modified By: Zaheer Hendrix RN 11/13/19 09:23:09 [facility] IntraOp Intraoperative Equipment Entry 1 Type Monitoring Equipment Intraop Monitoring Electrocardiogram Three lead placement (ECG) Electrode Placement Blood Pressure Non-Invasive BP Device Source Blood Pressure Arm, right upper Location Pulse Oximeter Hand, left Probe Site Antiembolic Devices Scopes Photo/Video Documentation Photo No Video No Intraop Equipment Sequential compression Comment devices not ordered Last Modified By: Zaheer Hendrix RN 11/13/19 09:23:43 [facility] IntraOp Medication Admin Entry 1 Medication/Irrigant BRENNA IRR NACL 0.9PCT 1.5L [id number] Route of Irrigation Administration Dose Administered By DARWIN GUERRERO MD-PRO Procedure Irrigation Last Modified By: Zaheer Hendrix RN 11/13/19 09:21:51 [facility] IntraOp Patient Positioning Entry 1 Procedure Hemorrhoidectomy Body Position Lithotomy Left Arm Position Secured on padded arm board Right Arm Position Secured on padded arm board Left Leg Position Secured in stirrup Right Leg Position Secured in stirrup Feet Uncrossed Yes Pressure Points Yes Checked Positioning Devices Head Rest, Arm Board, Arm Board, Pad, Elbow, Pad, Elbow, Stirrups/Leg Phelan, Sling Device Position SAFETY STRAP ACROSS ABDOMEN Positioned By Zaheer Hendrix RN, BA LORD CRNA-ANS, DARWIN GUERRERO MD-PRO Position Verified Positioning Yes Verified by Anesthesia Positioning Yes Verified by Surgeon Last Modified By: Zaheer Hendrix RN 11/13/19 09:19:29 [facility] IntraOp Sign In Entry 1 Patient, Site, Yes Procedure Identified Surgical Consent Yes Confirmed Relevant Surgical Yes Documents Available Surgical Site N/A Marked by person performing procedure Anesthesia Machine Yes Check Completed Medication Checks Yes Completed Allergies No Airway Difficult Yes Airway/Aspiration Risk Difficult Yes Airway/Aspiration Intervention Equipment Available Blood Loss Risk No Blood Loss No Intervention Equipment Prepared and Ready Blood Identifiers Not applicable Verified Per Policy Hypothermia Risk Yes Warming Measures Yes Taken Last Modified By: Zaheer Hendrix RN 11/13/19 09:23:53 [facility] IntraOp Sign Out Entry 1 RN Confirmation Surgical Yes Procedure(s) Identified Instrument, Sponge Yes and Sharps Counts Correct/Documented Equipment Problems N/A Documented Specimen Labeled N/A Correctly Urinary Catheter N/A Documented in IView Andino Patient Yes Recovery Concerns Reviewed with Anesthesia Provider, Surgeon and RN Andino Patient Yes Management Concerns Reviewed with Anesthesia Provider, Surgeon and RN Safety Checklist Yes Elements Complete? RN Sign Out Zaheer Hendrix RN Signature RN Sign Out 11/13/19 09:52:00 Signature Date/Time Plan of Care Outcome - Fire Risk OUTCOME STATEMENT: Goal met Patient is free from injury related to surgical fire Plan of Care Outcome - Pt Positioning OUTCOME STATEMENT: Goal met Absence of signs and symptoms of positioning injury. Plan of Care Outcome - Skin Prep OUTCOME STATEMENT: Goal met Intraoperative care is consistent with measures to prevent infection Plan of Care Outcome - Xray/Images OUTCOME STATEMENT: N/A Absence of observable signs or symptoms of radiation injury Plan of Care Outcome - Counts OUTCOME STATEMENT: N/A Absence of signs and symptoms of injury related to extraneous objects Last Modified By: Zaheer Hendrix RN 11/13/19 09:52:45 [facility] IntraOp Sign Out Audit 11/13/19 09:52:45 Bolter Helper: JOAQUIN Modifier: JOAQUIN <+> 1 RN Sign Out Signature Date/Time [facility] IntraOp Skin Prep Entry 1 Procedure Hemorrhoidectomy Prescribed N/A Pre-Surgical Prep Completed Prep Area CHLOÉ ANAL Intraop Prep Prep Agents Betadine solution Prep by Zaheer Hendrix RN Hair Removal Last Modified By: Zaheer Hendrix RN 11/13/19 09:23:00 [facility] IntraOp Surgical Procedures Entry 1 Procedure Hemorrhoidectomy Additional (HEMORRHOIDECTOMY) Procedure Description Primary Procedure Yes Primary Surgeon DARWIN GUERRERO MD-PRO Start 11/13/19 09:15:00 Stop 11/13/19 09:41:00 Anesthesia Type General Specialty SN Colorectal Wound Class III - Contaminated Last Modified By: Zaheer Hendrix RN 11/13/19 09:52:33 [facility] IntraOp Surgical Procedures Audit 11/13/19 09:52:33 Bolter Helper: JOAQUIN Modifier: BRYANS <+> 1 Stop [facility] IntraOp Temp Regulation Devices Entry 1 Temp Regulation Temperature Warm blankets, Room Regulation Device temperature Temperature Upper body Regulation Site Last Modified By: Zaheer Hendrix RN 11/13/19 09:23:46 [facility] IntraOP Time Out Entry 1 Procedure to be Hemorrhoidectomy Performed Time Out Time Out Pause Time 11/13/19 09:15:00 All activity Yes suspended (unless life threatening emergency) Team Verbally Correct patient Confirms Information identity, Correct side and site are marked, Consent form is present and accurate, Agreement on the procedure to be done, Correct patient position, Relevant images/results properly labeled/appropriately displayed, Confirm antibiotics have been administered, Confirm the skin prep has dried, Confirm prosthesis/implant/devic e is present, Performed in location of procedure after prepped/draped Antibiotic Yes Prophylaxis Administered Or In Progress Within the Last 60 Minutes Beta Zana N/A Administered Venous N/A Thromboembolism Prophylaxis Required Anticipated Critical Events Surgeon None expected, Critical or unexpected steps, Anticipated blood loss, Special equipment need Anesthesia Provider Patient specific concerns, None expected Nursing Assures Sterility of instruments, Equipment concerns or issues Essential Imaging Yes Labeled and Displayed Last Modified By: Zaheer Hendrix RN 11/13/19 09:16:24 Case Comments <None> Finalized By: DAYDAY CERVANTES Document Signatures Signed By: Zaheer Hendrix RN 11/13/19 09:52 DAYDAY CERVANTES 11/14/19 17:11 Unfinalized History Date/Time Username Reason for Unfinalizing Freetext Reason for Unfinalizing 11/14/19 17:11 [id number] Correct Billing Electronically signed by Joni Thurston Conversion Biodiesel Processing Technician Cerner at 01/04/2023 9:15 AM CDT documented in this encounter Plan of Treatment Not on file documented as of this encounter Visit Diagnoses Not on filedocumented in this encounter
--- OUTSIDE RECORDS SUMMARY | 2025-06-28 13:14 | XMS_ITS | Clinical Summary ---
Author Organization Healthcare Address [facility] [address] [place] [id number] Care Team Providers Care Education Reviewer Name Role Phone Dulce Maria Delcid APRN Primary Care Provider [phone] Allergies No known active allergies Immunizations Immunization Administration Dates Next Due Influenza, seasonal, injectable 09/10/2012 MMR 09/02/2012,07/30/2012 Tdap 08/18/2012 Family History Medical History Relation Name Comments Diabetes Other Relation Name Status Comments Other Social History Tobacco Use Types Packs/Day Years Used Date Smoking Tobacco: Every Day Alcohol Use Standard Drinks/Week Comments Yes 0 (1 standard drink = 0.6 oz pur e alcohol) Comments Unknown Sex and Gender Information Value Date Recorded Sex Assigned at Not on file Legal Sex Female 6:34 PM EDT Gender Identity Not on file Sexual Orientation Not on file Last Filed Vital Signs Vital Sign Reading Time Taken Comments Blood Pressure 115/80 09/16/2021 11:14 AM EST Pulse 114 09/16/2021 11:14 AM EST Temperature 36.8 C (98.2 F) 09/16/2021 11:14 AM EST Respiratory Rate 16 09/16/2021 11:14 AM EST Oxygen Saturation 97% 09/16/2021 11:14 AM EST Inhaled Oxygen Concentration - - Weight 107 kg (235 lb 3.7 oz) 07/11/2018 1:20 PM EDT Height 175.3 cm (5' 9 ) 07/11/2018 1:20 PM EDT Body Mass Index 34.74 07/11/2018 1:20 PM EDT Plan of Treatment Health Maintenance Due Date Last Done Comments [facility]-Depression Screening 1985 [facility]-Infant/Child/Adol SDOH Screenings 1985 [facility]- SDOH Screenings 2005 [facility]-Adult SDOH Screenings 2005 [facility]-Hepatitis B Vaccines (1 of 3 - 19+ 3-dose series) 2006 [facility]-Varicella Vaccines (1 of 2 - 13+ 2-dose series) 09/30/2012 HPV Vaccines (1 - 3-dose SCDM series) 2014 [facility]-Pap Smear 10/10/2018 10/10/2015 [facility]-Cervical Cancer Screening 10/10/2020 [facility]-HPV/Cotest 10/10/2020 10/10/2015 [facility]-DTaP,Tdap,and Td Vaccines (2 - Td or Tdap) 08/18/2022 08/18/2012 [id number] Vaccine (3 - 2024- season) 2025 05/15/2021, 04/22/2021 [facility]-Influenza Vaccine (#1) 2025 09/10/2012 [facility]-Zoster Vaccines (1 of 2) 2037 [facility]-HIB Vaccines Aged Out No longer e ligible based on patient's age to complete this topic [facility]-Hepatitis A Vaccines Aged Out No longer eligible based on patient's age to complete this topic [facility]-IPV Vaccines Aged Out No longer e ligible based on patient's age to complete this topic [facility]-Pneumococcal Vaccine: Pediatrics (0 to 5 Years) and At-Risk Patients (6 to 49 Years) Aged Out No longer eligible b ased on patient's age to complete this topic [facility]-Rotavirus Vaccines Aged Out No lo nger eligible based on patient's age to complete this topic Procedures Procedure Name Priority Date/Time Associated Diagnosis Comments CYTO DATA CONVERSION Routine 10/10/2015 12:00 AM EST from Last 3 Months or Most Recently Relevant to Health Maintenance Results * Cytology (10/10/2015 12:00 AM EST) 10/10/2015 10/11/2015 9:1 7 AM EST Narrative SUNQUEST - 10/17/2015 3:47 PM EST [facility] MR #: [id number] [facility] [place] [place] [id number] (Age: 30) FW Collect Date: 10/10/2015 00:00 Receipt Date: 10/11/2015 09:17 Page 1 DEPARTMENT OF PATHOLOGY AND LABORATORY MEDICINE CYTOPATHOLOGY REPORT Email: [email or web address] [phone] ATTENDING MD/Practitioner: Zachariah Ordoñez M.D Service: [facility] [place] [facility] [place]: 10/17/2015 15:47 Collected: 10/10/2015 00:00 INTERPRETATION A. THIN PREP (CERVICAL/VAGINAL): NEGATIVE FOR INTRAEPITHELIAL LESION OR MALIGNANCY. SATISFACTORY FOR EVALUATION; ENDOCERVICAL/ TRANSFORMATION ZONE COMPONENT PRESENT. Slide scanned and imaged by [employer] ThinPrep Imaging System with manual review of all selected anna. Electronically Signed Out By ANDRE Grijalva (ASCP) ANDRE Grijalva (ASCP) Cervical cytology is a screening test primarily for squamous cancers and precursors and has associated false negative and positive results. New technologies such as liquid based sampling may decrease but will not eliminate all false negative results. Regular screening and follow-up of unexplained clinical signs and symptoms are recommended to minimize false negative results. Please see the ASCCP website (www.asccp.org) for followup recommendations. If HPV testing was requested, correlation with the results is suggested (please call Microbiology at [phone] for results). CLINICAL INFORMATION: Menstrual History: Amenorrhea Date of Last Menstrual Period: Unknown Contraceptive History: Intrauterine device Other Clinical Conditions: If ASCUS and > 24 years of age, HPV/DNA testing requested. SPECIMEN DESCRIPTION: A: THIN PREP (CERVICAL/VAGINAL) THIN PREP PROCESS CELLULAR ENHANCEMENT ICD: F: A; RT IMAGE [id number] SNOMED CODES: A; [id number] In cases where a pathologist has signed out the report, the service has been rendered in part by a resident. The signing pathologist has performed and is responsible for the reported pathologic evaluation. us Lucia Ordoñez MD LAB PATHOLOGY ORDERABLES F inal Result SUNQUEST from Last 3 Months or Most Recently Relevant to Health Maintenance Insurance ANTHEM Care Teams Education Reviewer Relationship Specialty Start Date End Date Dulce Maria Delcid APRN [address] [address] PCP - General 09/16/21
--- OUTSIDE RECORDS SUMMARY | 2025-06-28 13:14 | XMS_ITS | Encounter Summary ---
Author Organization [employer] ([place], [place], [place], [place]) Address [address] [place] [address] Care Team Providers Care Internal Communications Writer Name Role Phone Unavailable Primary Care Provider Unavailabl e Encounter Details Date Type Department Care Team (Late st Contact Info) Description 11/13/2019 Transcribed Document [facility] Family Medicine [facility] [place] [address] ProviderAngeles MD [address] [place] [address] Social History Tobacco Use Types Packs/Day [...] Conversion Note - Angeles ProviderMD - 11/13/2019 10:45 AM SURVEY SUPERINTENDENT Patient Education Materials Follows: Surgical Procedures for Hemorrhoids, Care After Refer [...] these instructions at home: Medicines ??? Take favl-dgv-iiviscd and prescription medicines only as told by [...] instructions ??? Sit in a warm bath 2?3 times per day to relieve soreness or [...] 11/22/2004 Document Revised: 02/07/2017 Document Reviewed: 11/28/2015 [employer] Interactive Patient Education ? 2019 [employer] Outpatient Surgery, Adult, Care After These instructions [...] and water are not available, use hand garment fitter. ? Change your dressing as told by [...] or a bad smell. Medicines ??? Take rcka-fzm-peosxuy and prescription medicines only as told by [...] 12/23/2016 Document Revised: 04/10/2018 Document Reviewed: 12/23/2016 [employer] Interactive Patient Education ? 2019 [employer] Electronically signed by William Thurston Conversion Inventory Control Specialist Cerner at 01/04/2023 9:32 AM CDT documented in this encounter Plan of Treatment Not on file documented as of this encounter Visit Diagnoses Not on filedocumented in this encounter
[2025-06-28] MEDS: HYDROCODONE/APAP 5/325 MG TABLET 2 TAB PO (13:42)
--- NOTE | 2025-06-28 13:42 | ED_ITS ---
<Statement entered by Jason Flowers MD - 06/28/25 20:58> I was consulted by the RASHEL, and we discussed the complexity of problems being addressed. I approved the treatment and management plan for this patient's care in the emergency department, thus performing a substantial portion of the medical decision making. Jason Flowers MD Discharge Plan Disposition Patient Disposition: Home, Self-Care Prescriptions Prescriptions: New ketorolac 10 mg tablet 10 mg PO Q8H 5 Days Qty: 15 0RF prednisone 20 mg tablet 20 mg PO BID 5 Days Qty: 10 0RF methocarbamol 1,000 mg tablet 1,000 mg PO BID 14 Days Qty: 28 0RF Referrals Follow up/Referrals: Rigoberto Armendariz PA [Primary Care Provider, Medical] - See instructions Clinical Impressions Clinical Impression: Strain of lumbar region, Sciatica Stand Alone Forms Stand Alone Forms: Work/School Release Instructions Patient Instructions: DI for Low Back Pain Print Language Print Language: Maltese Discharge ED Provider: Jason Flowers General Adult HPI General Chief complaint: Back Pain/Injury Stated complaint: lower back pain Time Seen by Provider: 06/28/25 13:12 Mode of Arrival: Ambulatory Source of Information: Patient Description of Symptoms (Recalled from ER Triage Doc. by RN): Pt states she was laying lacie in her house yesterday and when she woke up she could barely walk. Pt has history of buldging discs and states this pain is worse. History of Present Illness HPI narrative: 40-year-old female presents to the ED today for complaint of low back pain that started yesterday. Says she has had back pain in the past where she had sciatica and bulging disks when she was . She went to the chiropractor and everything went away. She says she started lying in the floor and she sat down to take a break and went to get up and almost had tears due to the pain. She said she had tingling on the right top of her leg and the back 1 time this morning but that went away quickly. She says bending over causes pain in her legs but that goes away quickly. She says sitting causes pain, legs being elevated causes more pain and laying flat is very painful. She sat with her head elevated which is tolerable. She has tried heat and Tylenol but did not help much. She has no bowel or bladder changes. No red flag symptoms and she is not an IV drug user. She has no pop or defining moment where she had an obvious injury. No trauma to her back. She and I discussed doing pain management and then going back to the chiropractor which is what worked for her in the past. Related Data Previous Rx's ?Medication ?Instructions ?Recorded ketorolac 10 mg tablet 10 mg PO Q8H 5 days #15 tabs 06/28/25 methocarbamol 1,000 mg tablet 1,000 mg PO BID 14 days #28 tabs 06/28/25 prednisone 20 mg tablet 20 mg PO BID 5 days #10 tabs 06/28/25 Allergies Allergy/AdvReac Type Severity Reaction Status Date / Time No Known Allergies Allergy Verified 04/23/19 15:25 [facility] Disclaimer: The information contained in this section may have been updated after the patient was seen, as this information can be updated by other users. Social History Smoking Status: Current every day smoker alcohol intake: former current occupational status: other Travel in the last 8 weeks?: None ROS Obtained: Yes Systems reviewed as appropriate & no additional complaints except as documented Constitutional Constitutional: Reports as per HPI Physical Exam General General appearance: alert and in distress Head Head exam: normocephalic Eye Eye exam: Present PERRL and EOMI ENT ENT exam: Present normal oropharynx and mucous membranes moist Neck Neck exam: Present full ROM and trachea midline Respiratory Respiratory exam: Present normal lung sounds bilaterally Cardiovascular Cardiovascular exam: Present regular rate, normal rhythm, normal heart sounds, +S1 and +S2 Extremities Exam Extremities exam: Present full ROM and normal capillary refill Back Exam Back exam: Present normal inspection, tenderness, straight leg raise (R) and straight leg raise (L) Neurological Exam Neurological exam: Present alert and oriented X3 Skin Skin exam: Present warm, dry and intact Medical Decision Making Medical Records Screening: Per USPSTF and CDC recommendations, given the prevalence of disease in our region, it is our hospital?s policy to screen for HIV and viral Hepatitis for all patients aged 18 and over and those with ongoing risk factors. Luis Inquiry Pt receiving controlled substance: No Luis was queried for this patient: No Vital Signs: 06/28/25 13:01 06/28/25 15:01 Temperature 98.4 F 98.2 F Temperature Source Oral Oral Pulse Rate 68 Pulse Rate [Right] 87 Respiratory Rate 18 15 Blood Pressure 114/70 Blood Pressure [Right Arm] 167/94 H Blood Pressure Mean [Right Arm] 118 Blood Pressure Source Automatic Cuff Blood Pressure Source [Right Arm] Automatic Cuff Blood Pressure Position Sitting Blood Pressure Position [Right Arm] Sitting 02 Sat by Pulse Oximetry 98 Oxygen Delivery Method Room Air Room Air Orders (Tests/Meds): ED MEDICATIONS Discontinued Medications Generic Name Dose Route Start Last Admin Trade Name Darian PRN Reason Stop Dose Admin Hydrocodone Bitart/Acetaminophen 2 tab 06/28/25 13:19 06/28/25 13:42 Hydrocodone/Apap 5/325 Mg Tablet PO 06/28/25 13:20 2 tab ONCE ONE Administration Dexamethasone Sodium Phosphate 8 mg 06/28/25 13:20 06/28/25 13:47 Dexamethasone 4mg/Ml 1ml Vial IV 06/28/25 13:21 8 mg ONCE ONE Administration Ketorolac Tromethamine 30 mg 06/28/25 13:19 06/28/25 13:47 Ketorolac 30mg/Ml Vial IV 06/28/25 13:20 30 mg ONCE ONE Administration Orphenadrine Citrate 60 mg 06/28/25 13:19 06/28/25 13:48 Orphenadrine Citrate 60mg/2ml Vial IV 06/28/25 13:20 60 mg ONCE ONE Administration Medical Decision Narrative: patient is a 40-year-old female presenting to the emergency department for evaluation of low back pain. Patient is hemodynamically stable and nontoxic- appearing upon arrival, afebrile. Differential diagnosis includes low back pain, musculoskeletal spasms,. Workup will be conducted with no imaging is required today as there was no defining moment or injury, patient does not have any red flag symptoms no bowel or bladder changes no drug use and no trauma so I chose not to do any imaging at this time. Initial inventions include analgesics. After pain meds patient is moving around better and I had her stand up and walk a little bit and she felt much improved. Patient will make appointment with chiropractor tomorrow as this is what helped her the last time. Patient safe for discharge home Critical Care Critical Care Time Critical Care Time: No
[2025-06-28] MEDS: KETOROLAC 30MG/ML VIAL 30 MG IV (13:47)
[2025-06-28] MEDS: DEXAMETHASONE 4MG/ML 1ML VIAL 8 MG IV (13:47)
[2025-06-28] MEDS: ORPHENADRINE CITRATE 60MG/2ML VIAL 60 MG IV (13:48)
[2025-06-28 15:01] VITALS: BP 114/70; PULSE 68; RESP 15; TEMP 36.8; O2SAT 100
== END 2025-06-28 15:01 | disposition home or self-care (01) ==
PROVIDERS: Emergency Provider Emergency Medicine; PCP Physician Assistant
DX: S39.012A Strain of muscle, fascia and tendon of lower back, initial encounter (principal); M54.31 Sciatica, right side; X50.0XXA Overexertion from strenuous movement or load, initial encounter
CPT/HCPCS: 96374; 96375; 99284; J1100; J1885; J2360